=== PATIENT | male | born 1995 | race Hispanic/Latino ===

== ENCOUNTER 2020-06-17 19:45 | Emergency (ER) | payer OTHER ==
--- NOTE | 2020-06-17 20:32 | RAD REPORT ---
EXAM DESCRIPTION: RAD - Knee Left 3 View - 06/17/2020 8:26 pm CLINICAL HISTORY: PAIN COMPARISON: No comparisons FINDINGS: Patella kalina is noted. A patellar tendon injury is a possibility. No acute fracture or dis location seen. Consider follow-up MRI imaging for further evaluation.
--- NOTE | 2020-06-17 20:36 | EDPHYS ---
Physician Documentation [facility] Name: Lorie Sanchez Age: 24 yrs Sex: Male : 1995 Arrival Date: 06/17/2020 Time: 19:51 Bed 17 Private MD: ED Physician Brad Lamb HPI: 06/17 22:11 This 24 yrs old Male presents to ER via Wheelchair with complaints of Knee kb Injury, Knee Pain. 22:11 The patient presents with decreased range of motion, pain, swelling, tenderness. The kb complaints affect the left knee. Context: The problem was sustained at a sports field or court, resulted from playing sports, baseball, the patient is not able to bear weight, the patient is not able to ambulate. Onset: The symptoms/episode began/occurred today. Modifying factors: The symptoms are alleviated by nothing. the symptoms are aggravated by movement, weight bearing, bending knee. Associated signs and symptoms: Pertinent positives: swelling, Pertinent negatives calf tenderness, fever, nausea, numbness, rash, tingling, vomiting, warmth, weakness. Treatment prior to arrival includes: no previous treatment. Severity of symptoms: At their worst the symptoms were moderate, in the emergency department the symptoms are unchanged. The patient has not experienced similar symptoms in the past. The patient has not recently seen a physician. Historical: - Allergies: 19:58 No Known Allergies; ll1 - PSHx: 19:58 None; ll1 - Immunization history:: Flu vaccine is not up to date. - Social history:: Smoking status: Patient denies any tobacco usage or history of. Patient/guardian denies using alcohol, street drugs. ROS: 22:10 Constitutional: Negative for fever, chills, and weight loss, Cardiovascular: Negative kb for chest pain, palpitations, and edema, Respiratory: Negative for shortness of breath, cough, wheezing, and pleuritic chest pain, Abdomen/GI: Negative for abdominal pain, nausea, vomiting, diarrhea, and constipation, Back: Negative for injury and pain, Skin: Negative for injury, rash, and discoloration, Neuro: Negative for headache, weakness, numbness, tingling, and seizure. 22:10 MS/extremity: Positive for injury or acute deformity, decreased range of motion, pain, swelling, tenderness, of the left knee. Exam: 22:10 Constitutional: This is a well developed, well nourished patient who is awake, alert, kb and in no acute distress. Head/Face: Normocephalic, atraumatic. Chest/axilla: Normal chest wall appearance and motion. Nontender with no deformity. No lesions are appreciated. Cardiovascular: Regular rate and rhythm with a normal S1 and S2. No gallops, murmurs, or rubs. Normal PMI, no JVD. No pulse deficits. Respiratory: Lungs have equal breath sounds bilaterally, clear to auscultation and percussion. No rales, rhonchi or wheezes noted. No increased work of breathing, no retractions or nasal flaring. Abdomen/GI: Soft, non-tender, with normal bowel sounds. No distension or tympany. No guarding or rebound. No evidence of tenderness throughout. Back: No spinal tenderness. No costovertebral tenderness. Full range of motion. Skin: Warm, dry with normal turgor. Normal color with no rashes, no lesions, and no evidence of cellulitis. Neuro: Awake and alert, GCS 15, oriented to person, place, time, and situation. Cranial nerves II-XII grossly intact. Motor strength 5/5 in all extremities. Sensory grossly intact. Cerebellar exam normal. Normal gait. 22:10 Musculoskeletal/extremity: Extremities: grossly normal except: noted in the left knee: decreased ROM, pain, swelling, tenderness, ROM: limited active range of motion due to pain, in the left knee, Circulation is intact in all extremities. Sensation intact. Weight bearing: can bear weight with assistance only. Vital Signs: 19:56 BP 139 / 92; Pulse 96; Resp 17; Temp 98.4; Pulse Ox 100% ; Pain 8/10; ll1 MDM: 19:59 Patient medically screened. kb 20:35 Data reviewed: vital signs, nurses notes. Data interpreted: Pulse oximetry: on room air kb is 100 %. Interpretation: normal. Counseling: I had a detailed discussion with the patient and/or guardian regarding: the historical points, exam findings, and any diagnostic results supporting the discharge/admit diagnosis, the need for outpatient follow up, a family practitioner, to return to the emergency department if symptoms worsen or persist or if there are any questions or concerns that arise at home. 06/17 19:59 Order name: Knee Left 3 View XRAY; Complete Time: 20:33 kb 06/17 20:35 Order name: Knee Immobilizer; Complete Time: 21:21 kb 06/17 20:35 Order name: Crutches; Complete Time: 21:21 kb Administered Medications: 21:00 Drug: Crimora (7.5 mg-325 mg) 1 tabs Route: PO; ls4 21:15 Follow up: Response: No adverse reaction; RASS: Alert and Calm (0) rv Disposition: 21:31 Co-signature as Attending Physician, Brad Lamb MD. rn Disposition: 06/17/20 20:35 Discharged to Home. Impression: Sprain of unspecified site of left knee. - Condition is Stable. - Discharge Instructions: Knee Sprain. - Prescriptions for Diclofenac Sodium 75 mg Oral Tablet, Delayed Release (E.C.) - take 1 tablet by ORAL route 2 times per day As needed; 30 tablet. - Medication Reconciliation Form, Thank You Letter, Antibiotic Education, Prescription Opioid Use form. - Follow up: Emergency Department; When: As needed; Reason: Worsening of condition. Follow up: Private Physician; When: 2 - 3 days; Reason: Recheck today's complaints, Continuance of care, Re-evaluation by your physician. Signatures: Dispatcher [employer] EDMS Lu Posey, [employer]C [employer]-Ckb Brad Lamb MD MD rn Stewart, Lisa, RN RN ls4 Guillermo Zabala RN RN ll1 Ankur Candelario RN rv Corrections: (The following items were deleted from the chart) 21:22 20:35 06/17/2020 20:35 Discharged to Home. Impression: Sprain of unspecified site of ls4 left knee. Condition is Stable. Forms are Medication Reconciliation Form, Thank You Letter, Antibiotic Education, Prescription Opioid Use. Follow up: Emergency Department; When: As needed; Reason: Worsening of condition. Follow up: Private Physician; When: 2 - 3 days; Reason: Recheck today's complaints, Continuance of care, Re-evaluation by your physician. kb
--- NOTE | 2020-06-17 20:36 | ER ---
Nurse's Notes [facility] Name: Lorie Sanchez Age: 24 yrs Sex: Male : 1995 Arrival Date: 06/17/2020 Time: 19:51 Bed 17 Private MD: Diagnosis: Sprain of unspecified site of left knee Presentation: 06/17 19:56 Chief complaint: Patient states: Left knee pain since falling during softball game ll1 today 1530. Went to Urgent Care first, got a toradol shot. Was sent her for further eval. Coronavirus screen: Client denies travel out of the [place] in the last 14 days. At this time, the client does not indicate any symptoms associated with coronavirus-19. Ebola Screen: Patient denies travel to an Ebola-affected area in the 21 days before illness onset. Initial Sepsis Screen: Does the patient meet any 2 criteria? HR > 90 bpm. Risk Assessment: Do you want to hurt yourself or someone else? Patient reports no desire to harm self or others. Onset of symptoms was June 17, 2020. 19:56 Method Of Arrival: Wheelchair ll1 19:56 Acuity: RENITA 3 ll1 20:16 Initial Sepsis Screen: Does the patient have a suspected source of infection? No. ls4 Patient's initial sepsis screen is negative. Triage Assessment: 20:14 General: Appears uncomfortable, Behavior is calm, cooperative. Pain: Complains of pain ls4 in left knee Pain currently is 8 out of 10 on a pain scale. Musculoskeletal: Circulation, motion, and sensation intact. Capillary refill < 3 seconds, Range of motion: limited in left knee. Injury Description: FELL WHILE PLAYING BASKETBALL. Historical: - Allergies: 19:58 No Known Allergies; ll1 - PSHx: 19:58 None; ll1 - Immunization history:: Flu vaccine is not up to date. - Social history:: Smoking status: Patient denies any tobacco usage or history of. Patient/guardian denies using alcohol, street drugs. Screenin:15 Abuse screen: Denies threats or abuse. Denies injuries from another. Nutritional ls4 screening: No deficits noted. Tuberculosis screening: No symptoms or risk factors identified. Fall Risk None identified. Assessment: 20:15 General: SEE TRIAGE ASSESSMENT . ls4 21:22 Reassessment: Patient appears in no apparent distress at this time. Patient and/or ls4 family updated on plan of care and expected duration. Pain level reassessed. Patient is alert, oriented x 3, equal unlabored respirations, skin warm/dry/pink. Patient states symptoms have improved. Vital Signs: 19:56 BP 139 / 92; Pulse 96; Resp 17; Temp 98.4; Pulse Ox 100% ; Pain 8/10; ll1 ED Course: 19:51 Patient arrived in ED. cf2 19:57 Triage completed. ll1 19:58 Arm band placed on Patient placed in an exam room, on a stretcher. ll1 19:59 Lu Posey FNP-C is [facility]. kb 19:59 Brad Lamb MD is Attending Physician. kb 20:14 Brooke Whittington, RN is Primary Nurse. ls4 20:16 Patient has correct armband on for positive identification. Placed in gown. Bed in low ls4 position. Call light in reach. Side rails up X 1. 20:16 No provider procedures requiring assistance completed. Patient did not have IV access ls4 during this emergency room visit. 20:16 Knee Left 3 View XRAY Sent. ls4 20:26 Knee Left 3 View XRAY In Process Unspecified. EDMS 20:28 Ice pack to injury. jp3 21:22 Knee immobilizer applied on left knee. ls4 21:22 Crutch training done. ls4 Administered Medications: 21:00 Drug: Dennis (7.5 mg-325 mg) 1 tabs Route: PO; ls4 21:15 Follow up: Response: No adverse reaction; RASS: Alert and Calm (0) rv Outcome: 20:35 Discharge ordered by . kb 21:21 Discharged to home ambulatory, with crutches. ls4 21:21 Condition: good 21:21 Discharge instructions given to patient, Instructed on discharge instructions, follow up and referral plans. crutch walking, Demonstrated understanding of instructions, follow-up care, medications, crutch walking, Prescriptions given X 1. 21:22 Patient left the ED. ls4 Signatures: Dispatcher [employer] EDMS Lu Posey FNP-C FNP-Ankur Valentin RN RN rv Edwin Taylor jp3 Brooke Whittington, LUIS M RN ls4 Sergey Holland cf2 Guillermo Zabala, RN RN ll1
[2020-06-17] MEDS ORDERED: HYDROCODONE/APAP 7.5/325 MG TAB ONE (21:10)
[2020-06-17 22:52] VITALS: BP 139/92; TEMP 98.4; O2SAT 100
== END 2020-06-17 21:22 | disposition home or self-care (01) ==
LOC: ER 19:45
DX: S83.92XA Sprain of unspecified site of left knee, initial encounter (principal); Y93.64 Activity, baseball; Y92.320 Baseball field as the place of occurrence of the external cause
CPT/HCPCS: 99284

== ENCOUNTER 2020-06-22 11:19 | Day surgery (SDC) | payer OTHER ==
[2020-06-22 10:37] LABS: Absolute Lymphocytes (CBC) 2.3 K/uL (0.7-4.9); Basophils % 0.2 % (0-1.3); Hematocrit 44.4 % (39.6-49.0); Lymphocytes % 30.2 % (15.3-44.8); RBC Red Blood Cell Count 5.02 M/uL (4.33-5.43)
[2020-06-22 10:54] LABS: BUN Blood Urea Nitrogen 20 mg/dL (7-18); Bicarbonate 28 mmol/L (21-32); Glucose Level 89 mg/dL (74-106); Potassium 4.4 mmol/L (3.5-5.1); Sodium Level 141 mmol/L (136-145)
[~2020-06-22 11:19] MED LIST: FENTANYL CITR 100 MCG/2 ML ONE; KETOROLAC 30 MG/ML INJ ONE; LIDOCAINE 2% MPF 5 ML VIAL ONE; MIDAZOLAM HCL 2 MG/2 ML INJ ONE; ONDANSETRON 4 MG/2 ML VIAL ONE; dexAMETHasone 10 MG/ML VIAL ONE; propofoL 200 MG/20 ML VIAL IV ONE
[2020-06-22] MEDS ORDERED: CEFAZOLIN/SWI 1gm 1 GM/10 ML SYR ONE (11:38)
[2020-06-22] MEDS ORDERED: Ringers Lactate 1,000 ML IV ONE ×2 (11:38→13:29)
--- NOTE | 2020-06-22 13:25 | P.BOP ---
Preoperative diagnosis: left patellar tendon rupture Postoperative diagnosis: same Primary procedure: left patellar tendon repair Estimated blood loss: 20 ccs Anesthesia: General Complications: None Transferred to: Recovery Room
[2020-06-22] MEDS ORDERED: MIDAZOLAM HCL 2 MG/2 ML INJ ONE (14:01)
[2020-06-22] MEDS ORDERED: ONDANSETRON 4 MG/2 ML VIAL ONE (14:01)
[2020-06-22] MEDS ORDERED: FENTANYL CITR 100 MCG/2 ML ONE (14:01)
[2020-06-22] MEDS ORDERED: dexAMETHasone 10 MG/ML VIAL ONE (14:01)
[2020-06-22] MEDS ORDERED: LIDOCAINE 2% MPF 5 ML VIAL ONE (14:01)
[2020-06-22] MEDS ORDERED: propofoL 200 MG/20 ML VIAL IV ONE (14:01)
[2020-06-22] MEDS ORDERED: KETOROLAC 30 MG/ML INJ ONE (14:01)
[2020-06-22] MEDS ORDERED: HYDROCODONE/APAP 5/325 MG TAB PO ONE (14:25)
[2020-06-22 15:34] VITALS: TEMP 97.8; O2SAT 100
[2020-06-22 15:51] VITALS: BP 110/67
--- NOTE | 2020-06-22 23:45 | OP ---
Date of Procedure: 06/22/2020 Surgeon: Maksim Aguila MD Preoperative Diagnosis: Left patellar tendon rupture. Postoperative Diagnosis: Left patellar tendon rupture. Procedure: Left patellar tendon repair. Estimated Blood Loss: 20 cc. Complications: There were no complications. Pathology: No pathology specimen sent. Indication For Operation: Mr. Sanchez is a 24-year-old male who was playing baseball and had attempt ed to stop, but unfortunately his knee continued forward and he had significant pain related to his k nee, came to see me in my office where he could not perform a straight leg raise and I did feel that there was a gap at his patellar tendon. He also has patella kalina on his x-rays. An MRI is done to c onfirm patellar tendon rupture, but also to look for any other intra-articular pathology. This revea ls a widely displaced and torn patellar tendon, but otherwise no intra-articular pathology. Risks, b enefits, and alternatives to patellar tendon repair had been discussed with the patient. He states h e understands things as presented and wishes to proceed. Description Of Procedure: The patient was taken to the operating room and placed in supine position. General anesthesia was obtained by the staff. Following this, a block was then performed by the [facility]. A well-padded tourniquet placed on superior left thigh. Left lower extremity was th en prepped and draped in usual sterile fashion for procedure. Following this, the patella was germania t down as far as possible using hand and tourniquet was raised. An anterior incision was taken down carefully through the skin and soft tissues. Meticulous hemostasis being maintained using Bovie elec trocautery. This leads down to the patella and there was approximately 2 cm of very frayed patellar tendon at the distal pole of the patella. This was followed by a gap and quite a bit of essentially shredded patellar tendon down to approximately 2-3 cm above the tubercle. There was some debridement done, but obviously debridement of all damaged patellar tendon would leave essentially almost no pat ellar tendon left. Therefore, the edges were cleared and a FiberWire was then placed in a locking ty pe fashion at both the medial and lateral aspects of the patellar tendon with both strands of the eac h FiberWire being at the most proximal aspect of the tendon. Three drill holes using a 2-0 drill wer e then placed from the inferior aspect of the patella through the superior aspect. The center hole w as used for the 2 central strands, 1 from each FiberWire. Then, the ones that are medial and lateral are used for the additional strand. This allows for bringing the patella down and tying these over bone tunnel superiorly. After this, the knee was brought to 90 degrees and found to be no gapping of the repair. 0 Ethibond was then used to repair back the medial retinaculum and a small amount of th e lateral retinaculum. The wound was then irrigated and closed using interrupted Vicryl sutures, fol lowed by brian. The patient was then placed in extremely well-padded sterile dressing as well as a posterior splint and an immobilizer. He is awakened and taken to recovery room in good condition. There were no complications. BRIAN Voice ID: [id number] Report ID: [id number]
== END 2020-06-22 15:30 | disposition home or self-care (01) ==
LOC: OR 11:19
PROVIDERS: ATTEND Orthopaedic Surgery
PROC: 0LQR0ZZ Repair Left Knee Tendon, Open Approach (ICD-10-PCS; principal; 2020-06-22 12:30)
DX: S76.112A Strain of left quadriceps muscle, fascia and tendon, initial encounter (principal); U07.1 COVID-19
CPT/HCPCS: 85025; 80048; 36415; 27380; U0002; J2704 ×2; J2250 ×2; J3010 ×2; J1100 ×2; J0690; J7120 ×2; J2405 ×2

== ENCOUNTER 2022-09-24 20:44 | Emergency (ER) | payer BC, OTHER ==
[2022-09-24] MEDS ORDERED: NA CHLORIDE 0.9% 1,000 ML ONE (22:00)
[2022-09-24] MEDS ORDERED: MORPHINE 4 MG/ML SYR ONE (22:00)
[2022-09-24] MEDS ORDERED: ONDANSETRON 4 MG/2 ML VIAL ONE (22:00)
[2022-09-24 22:24] LABS: Urine Blood 3+ (Negative); Urine Glucose Negative (Negative); Urine Protein 2+ (Negative); Urine Specific Gravity >=1.030 (1.005-1.030); Urine pH 5.5 (5.0-7.0)
[2022-09-24 22:30] LABS: Absolute Lymphocytes (CBC) 2.3 K/uL (0.7-4.9); Hematocrit 41.8 % (39.6-49.0); Lymphocytes % 21.3 % (15.3-44.8); MCV 88.4 fL (80-100); MPV 8.3 fL (7.6-11.3); RBC Red Blood Cell Count 4.73 M/uL (4.33-5.43)
[2022-09-24 22:42] LABS: Albumin 4.1 g/dL (3.4-5.0); Bilirubin Total 0.2 mg/dL (0.2-1.0); Potassium 4.2 mmol/L (3.5-5.1); Protein, Total 7.9 g/dL (6.4-8.2)
--- NOTE | 2022-09-24 23:26 | EDPHYS ---
Physician Documentation [facility] Name: Lorie Sanchez Age: 27 yrs Sex: Male : 1995 Arrival Date: 09/24/2022 Time: 20:50 Bed 17 Private MD: ED Physician Lu Benitez HPI: 09/24 21:51 This 27 yrs old Male presents to ER via Ambulatory with complaints of Flank snw Pain, Abdominal Pain, Vomiting. 21:51 The patient complains of pain in the right low back. Location: abdomen. Onset: The snw symptoms/episode began/occurred acutely. Modifying factors: The symptoms are alleviated by nothing. Associated signs and symptoms: Pertinent positives: nausea, vomiting, dark urine. Severity of pain: At its worst the pain was moderate severe in the emergency department the pain is unchanged. The patient has not experienced similar symptoms in the past. The patient has not recently seen a physician. Historical: - Allergies: 21:19 No Known Allergies; tw5 - Home Meds: 21:19 sertraline 50 mg oral tab 1 tab once daily [Active]; tw5 - PMHx: 21:19 Anxiety; tw5 - PSHx: 21:19 patella-tendon; tw5 - Immunization history:: Flu vaccine is up to date. - Social history:: Smoking status: Patient denies any tobacco usage or history of. ROS: 21:50 Constitutional: Negative for fever, chills, and weight loss, Eyes: Negative for injury, snw pain, redness, and discharge, ENT: Negative for injury, pain, and discharge, Neck: Negative for injury, pain, and swelling, Cardiovascular: Negative for chest pain, palpitations, and edema, Respiratory: Negative for shortness of breath, cough, wheezing, and pleuritic chest pain, : Negative for injury, bleeding, discharge, and swelling, + difficulty voiding MS/Extremity: Negative for injury and deformity, Skin: Negative for injury, rash, and discoloration, Neuro: Negative for headache, weakness, numbness, tingling, and seizure, Psych: Negative for depression, anxiety, suicide ideation, homicidal ideation, and hallucinations. 21:50 Abdomen/GI: Positive for abdominal pain, constipation, abdominal cramps. 21:50 Back: Positive for flank pain, on the right. Exam: 21:49 Constitutional: This is a well developed, well nourished patient who is awake, alert, snw and in moderate pain to right flank/lower back. Head/Face: Normocephalic, atraumatic. Eyes: Pupils equal round and reactive to light, extra-ocular motions intact. Lids and lashes normal. Conjunctiva and sclera are non-icteric and not injected. Cornea within normal limits. Periorbital areas with no swelling, redness, or edema. ENT: Nares patent. No nasal discharge, no septal abnormalities noted. Tympanic membranes are normal and external auditory canals are clear. Oropharynx with no redness, swelling, or masses, exudates, or evidence of obstruction, uvula midline. Mucous membranes moist. Neck: Trachea midline, no thyromegaly or masses palpated, and no cervical lymphadenopathy. Supple, full range of motion without nuchal rigidity, or vertebral point tenderness. No Meningismus. Chest/axilla: Normal chest wall appearance and motion. Nontender with no deformity. No lesions are appreciated. Cardiovascular: Regular rate and rhythm with a normal S1 and S2. No gallops, murmurs, or rubs. Normal PMI, no JVD. No pulse deficits. Respiratory: Lungs have equal breath sounds bilaterally, clear to auscultation and percussion. No rales, rhonchi or wheezes noted. No increased work of breathing, no retractions or nasal flaring. Abdomen/GI: Soft, non-tender, with normal bowel sounds. No distension or tympany. No guarding or rebound. No evidence of tenderness throughout. Back: No spinal tenderness. No costovertebral tenderness. Full range of motion. Skin: Warm, dry with normal turgor. Normal color with no rashes, no lesions, and no evidence of cellulitis. MS/ Extremity: Pulses equal, no cyanosis. Neurovascular intact. Full, normal range of motion. Neuro: Awake and alert, GCS 15, oriented to person, place, time, and situation. Cranial nerves II-XII grossly intact. Motor strength 5/5 in all extremities. Sensory grossly intact. Cerebellar exam normal. Normal gait. Psych: Awake, alert, with orientation to person, place and time. Behavior, mood, and affect are within normal limits. Vital Signs: 21:16 BP 118 / 94; Pulse 70; Resp 18; Temp 98.6; Pulse Ox 98% ; Weight 97.52 kg; Height 5 ft. tw5 6 in. (167.64 cm); Pain 6/10; 21:54 BP 133 / 77; Pulse 66; Resp 24; Temp 98.1; Pulse Ox 97% on R/A; Weight 97.52 kg; Height pf1 5 ft. 6 in. (167.64 cm); Pain 6/10; 23:00 BP 135 / 82; Pulse 77; Resp 18; Pulse Ox 97% ; Pain 0/10; pf1 09/25 00:00 BP 134 / 82; Pulse 87; Resp 16; Temp 98; Pulse Ox 97% ; Pain 0/10; pf1 09/24 21:54 Body Mass Index 34.70 (97.52 kg, 167.64 cm) pf1 MDM: 09/24 21:31 Patient medically screened. snw 23:27 Data reviewed: vital signs, nurses notes. Data interpreted: Pulse oximetry: on room air snw is 97 %. Interpretation: normal. Counseling: I had a detailed discussion with the patient and/or guardian regarding: the historical points, exam findings, and any diagnostic results supporting the discharge/admit diagnosis, lab results, radiology results, the need for outpatient follow up, to return to the emergency department if symptoms worsen or persist or if there are any questions or concerns that arise at home. Response to treatment: the patient's symptoms have markedly improved after treatment. Special discussion: Based on the history and exam findings, there is no indication for further emergent testing or inpatient evaluation. I discussed with the patient/guardian the need to see the primary care provider for further evaluation of the symptoms. I discussed with the patient/guardian the need to see the urologist for further evaluation of the symptoms. 09/24 20:55 Order name: Urine Microscopic Only; Complete Time: 23:47 snw 09/24 21:49 Order name: CBC with Diff; Complete Time: 22:47 snw 09/24 21:35 Order name: CT Stone Protocol snw 09/24 21:49 Order name: CMP; Complete Time: 22:43 snw 09/24 21:49 Order name: Lipase; Complete Time: 22:43 snw 09/24 22:24 Order name: Urine Dipstick-Ancillary; Complete Time: 22:24 EDMS 09/24 20:55 Order name: Urine Dipstick-Ancillary (obtain specimen); Complete Time: 02:49 snw 09/24 21:49 Order name: IV Saline Lock; Complete Time: 22:17 snw 09/24 21:49 Order name: Labs collected and sent; Complete Time: 22:17 snw Administered Medications: 22:25 Drug: NS 0.9% 1000 ml Route: IV; Rate: 1 bolus; Site: right antecubital; pf1 23:25 Follow up: Response: No adverse reaction pf1 09/25 00:30 Follow up: IV Status: Completed infusion; IV Intake: 1000ml pf1 09/24 22:25 Drug: Zofran (Ondansetron) 4 mg Route: IVP; Site: right antecubital; pf1 23:25 Follow up: Response: Nausea is decreased pf1 22:25 Drug: morphine 4 mg Route: IVP; Infused Over: 4 mins; Site: right antecubital; pf1 23:25 Follow up: Response: Marked relief of symptoms; Pain is decreased; RASS: Alert and Calm pf1 (0) 23:38 Drug: Flomax (tamsulosin) 0.4 mg Route: PO; pf1 23:45 Follow up: Response: No adverse reaction pf1 Disposition: 09/25 20:57 STAFF ATTESTATION STATEMENT: I was immediately available onsite in the emergency sd2 department for consultation in the care of this patient. I did not see or examine this patient. Lu Benitez MD. Disposition Summary: 09/24/22 23:25 Discharge Ordered Location: Home snw Condition: Stable snw Diagnosis - Hydronephrosis with renal and ureteral calculous obstruction - 2mm UVJ stone snw Followup: snw - With: Emergency Department - When: As needed - Reason: Worsening of condition Followup: snw - With: Private Physician - When: 5 - 6 days - Reason: Recheck today's complaints, Continuance of care, Re-evaluation by your physician Discharge Instructions: - Discharge Summary Sheet snw - Kidney Stones snw - Renal Colic snw - Hydronephrosis snw - Dietary Guidelines to Help Prevent Kidney Stones snw - Rehydration, Adult snw Forms: - Medication Reconciliation Form snw - Thank You Letter snw - Antibiotic Education snw - Prescription Opioid Use snw Prescriptions: - Cipro 500 mg Oral Tablet - take 1 tablet by ORAL route every 12 hours for 7 days; 14 tablet; Refills: 0, snw Product Selection Permitted - Diclofenac Sodium 75 mg Oral Tablet Sustained Release - take 1 tablet by ORAL route 2 times per day; 30 tablet; Refills: 0, Product snw Selection Permitted - promethazine 25 mg Oral Tablet - take 1 tablet by ORAL route every 6 hours As needed; 20 tablet; Refills: 0, snw Product Selection Permitted Signatures: Dispatcher [employer] EDMS Kaitlin Haley FNP-C [employer]-Srea Nielsen tw5 Lu Benitez MD MD sd2 Alcira farnsworth RN RN pf1 Corrections: (The following items were deleted from the chart) 09/24 21:20 21:19 Home Meds: None;
--- NOTE | 2022-09-24 23:26 | ER ---
Nurse's Notes [facility] Name: Lorie Sanchez Age: 27 yrs Sex: Male : 1995 Arrival Date: 09/24/2022 Time: 20:50 Bed 17 Private MD: Diagnosis: Hydronephrosis with renal and ureteral calculous obstruction-2mm UVJ stone Presentation: 09/24 21:16 Chief complaint: Patient states: "I feel constipated, and I feel like I need to urinate tw5 and I cannot. I felt a sharp pain in my side and I vomited. It is in the lower right part of the stomach.". Coronavirus screen: Vaccine status: Patient reports being unvaccinated. Ebola Screen: Patient negative for fever greater than or equal to 101.5 degrees Fahrenheit, and additional compatible Ebola Virus Disease symptoms Patient denies exposure to infectious person. Patient denies travel to an Ebola-affected area in the 21 days before illness onset. Initial Sepsis Screen: Does the patient meet any 2 criteria? No. Patient's initial sepsis screen is negative. Does the patient have a suspected source of infection? No. Patient's initial sepsis screen is negative. Risk Assessment: Do you want to hurt yourself or someone else? Patient reports no desire to harm self or others. Onset of symptoms was September 24, 2022 at 20:00. 21:16 Method Of Arrival: Ambulatory tw5 21:16 Acuity: RENITA 3 tw5 Triage Assessment: 21:19 General: Appears in no apparent distress. Behavior is calm, cooperative, appropriate tw5 for age. Pain: Complains of pain in right lower quadrant Pain currently is 5 out of 10 on a pain scale. GI: Reports constipation, nausea, vomiting. Historical: - Allergies: 21:19 No Known Allergies; tw5 - Home Meds: 21:19 sertraline 50 mg oral tab 1 tab once daily [Active]; tw5 - PMHx: 21:19 Anxiety; tw5 - PSHx: 21:19 patella-tendon; tw5 - Immunization history:: Flu vaccine is up to date. - Social history:: Smoking status: Patient denies any tobacco usage or history of. Screenin:00 [facility] ED Fall Risk Assessment (Adult) History of falling in the last 3 months, pf1 including since admission No falls in past 3 months (0 pts) Confusion or Disorientation No (0 pts) Intoxicated or Sedated No (0 pts) Impaired Gait No (0 pts) Mobility Assist Device Used No (0 pt) Altered Elimination No (0 pt) Score/Fall Risk Level 0 - 2 = Low Risk. Abuse screen: Denies threats or abuse. Nutritional screening: No deficits noted. Tuberculosis screening: No symptoms or risk factors identified. Assessment: 21:30 General: Appears in no apparent distress. uncomfortable, well groomed, well developed, pf1 Behavior is calm, cooperative, appropriate for age, quiet. 21:30 Pain: Complains of pain in right lower quadrant Pain began 2-3 days ago. Neuro: No pf1 deficits noted. Level of Consciousness is awake, alert, obeys commands, Oriented to person, place, time, situation. Cardiovascular: No deficits noted. Capillary refill < 3 seconds. Respiratory: No deficits noted. Airway is patent Respiratory effort is even, unlabored, Respiratory pattern is regular, symmetrical, Breath sounds are clear bilaterally. GI: Abdomen is round non-distended, Bowel sounds present X 4 quads. Abd is soft Abdomen is tender to palpation in right lower quadrant Reports constipation, nausea. : No deficits noted. No signs and/or symptoms were reported regarding the genitourinary system. EENT: No deficits noted. Derm: No deficits noted. No signs and/or symptoms reported regarding the dermatologic system. 22:30 General: Patient taken to [facility] via WC. pf1 Vital Signs: 21:16 BP 118 / 94; Pulse 70; Resp 18; Temp 98.6; Pulse Ox 98% ; Weight 97.52 kg; Height 5 ft. tw5 6 in. (167.64 cm); Pain 6/10; 21:54 BP 133 / 77; Pulse 66; Resp 24; Temp 98.1; Pulse Ox 97% on R/A; Weight 97.52 kg; Height pf1 5 ft. 6 in. (167.64 cm); Pain 6/10; 23:00 BP 135 / 82; Pulse 77; Resp 18; Pulse Ox 97% ; Pain 0/10; pf1 09/25 00:00 BP 134 / 82; Pulse 87; Resp 16; Temp 98; Pulse Ox 97% ; Pain 0/10; pf1 09/24 21:54 Body Mass Index 34.70 (97.52 kg, 167.64 cm) pf1 ED Course: 09/24 20:50 Patient arrived in ED. ja2 20:55 [facility]ait[facility] Haley [facility] snw 20:55 Lu Benitez MD is Attending Physician. snw 21:19 Triage completed. tw5 21:19 Arm band placed on. tw5 21:35 Patient has correct armband on for positive identification. Placed in gown. Bed in low pf1 position. Call light in reach. 21:35 Warm blanket given. pf1 21:45 Inserted saline lock: 20 gauge in right antecubital area, using aseptic technique. pf1 Blood collected. 21:53 Alcira farnsworth, RN is Primary Nurse. pf1 22:00 No provider procedures requiring assistance completed. pf1 22:17 CBC with Diff Sent. pf1 22:17 CMP Sent. pf1 22:17 Lipase Sent. pf1 22:45 CT Stone Protocol In Process Unspecified. EDMS 23:45 IV discontinued, intact, bleeding controlled, No redness/swelling at site. Pressure pf1 dressing applied. Administered Medications: 22:25 Drug: NS 0.9% 1000 ml Route: IV; Rate: 1 bolus; Site: right antecubital; pf1 23:25 Follow up: Response: No adverse reaction pf1 09/25 00:30 Follow up: IV Status: Completed infusion; IV Intake: 1000ml pf1 09/24 22:25 Drug: Zofran (Ondansetron) 4 mg Route: IVP; Site: right antecubital; pf1 23:25 Follow up: Response: Nausea is decreased pf1 22:25 Drug: morphine 4 mg Route: IVP; Infused Over: 4 mins; Site: right antecubital; pf1 23:25 Follow up: Response: Marked relief of symptoms; Pain is decreased; RASS: Alert and Calm pf1 (0) 23:38 Drug: Flomax (tamsulosin) 0.4 mg Route: PO; pf1 23:45 Follow up: Response: No adverse reaction pf1 Medication: 22:00 VIS not applicable for this client. pf1 Intake: 09/25 00:30 IV: 1000ml; Total: 1000ml. pf1 Outcome: 09/24 23:25 Discharge ordered by . snw 23:49 Discharged to home ambulatory, with family. pf1 23:49 Condition: improved 23:49 Discharge instructions given to patient, Instructed on discharge instructions, follow up and referral plans. medication usage, Demonstrated understanding of instructions, follow-up care, medications, Prescriptions given X 3. 23:50 Patient left the ED. pf1 Signatures: Dispatcher [employer] EDMS Kaitlin Haley, ADINA-C [employer] CONTROL OPERATOR FORMING-Csnw Marah Guerra Tiffany tw5 Alcira farnsworth RN RN pf1 Corrections: (The following items were deleted from the chart) 21:20 21:19 Home Meds: None; tw5 tw5
[2022-09-24] MEDS ORDERED: TAMSULOSIN 0.4 MG SR CAP ONE (23:35)
[2022-09-24 23:46] LABS: Urine Bacteria None Seen /HPF (<20); Urine Mucus 4+ /HPF (None Seen); Urine RBC >50 /HPF (None Seen)
[2022-09-24 23:55] VITALS: BP 133/77; TEMP 98.1; O2SAT 97
--- NOTE | 2022-09-25 11:14 | RAD REPORT ---
EXAM DESCRIPTION: CT Abdomen and Pelvis Without Intravenous Contrast CLINICAL HISTORY: The patient is 27 years old and is Male; flank pain TECHNIQUE: Axial computed tomography images of the abdomen and pelvis without intravenous contrast. Sagittal and coronal reformatted images were created and reviewed. This CT exam was performed usi ng one or more of the following dose reduction techniques: automated exposure control, adjustment o f the mA and/or kV according to patient size, and/or use of iterative reconstruction technique. DLP: 1207 mGy*cm COMPARISON: None. FINDINGS: LUNG BASES: Bibasilar atelectasis. No focal consolidation. HEART: Visualized heart is normal. ABDOMEN: LIVER: Hepatic steatosis. GALLBLADDER AND BILE DUCTS: Unremarkable. No calcified stones. No ductal dilation. PANCREAS: Unremarkable. No ductal dilation. SPLEEN: Unremarkable. No splenomegaly. ADRENALS: Unremarkable. No mass. KIDNEYS AND URETERS: 2 mm right UVJ stone with mild hydronephrosis and hydroureter as well as enla rgement of the right kidney. STOMACH AND BOWEL: Unremarkable. No obstruction. No mucosal thickening. PELVIS: APPENDIX: The appendix is seen and is within normal limits. BLADDER: Bladder is decompressed. No stones. REPRODUCTIVE: Unremarkable as visualized. ABDOMEN and PELVIS: INTRAPERITONEAL SPACE: Unremarkable. No free air. No significant fluid collection. BONES/JOINTS: No acute fracture. No dislocation. SOFT TISSUES: Fat-containing umbilical and bilateral inguinal hernias. VASCULATURE: Unremarkable. No abdominal aortic aneurysm. LYMPH NODES: Unremarkable. No enlarged lymph nodes. IMPRESSION: 1. 2 mm right UVJ stone with mild hydronephrosis and hydroureter as well as enlargemen t of the right kidney. Correlate with urinalysis for superimposed infectious process. 2. Hepatic steatosis. Electronically signed by: Justin Phan DO 09/24/2022 11:00 PM ACRYLIC FABRICATOR Due to temporary technical issues with the PACS/Fluency reporting system, reports are being signed by the in house radiologists without review as a courtesy to insure prompt reporting. The interpreting radiologist is fully responsible for the content of the report.
== END 2022-09-24 23:50 | disposition home or self-care (01) ==
LOC: ER 20:44
DX: N13.2 Hydronephrosis with renal and ureteral calculous obstruction (principal); F41.9 Anxiety disorder, unspecified
CPT/HCPCS: 85025; 36415; 83690; 80053; 76377; 74176; J7030; J2405; 81003; 81015